=== PATIENT | male | born 1960 | race Caucasian/White ===

== ENCOUNTER 2023-07-09 17:00 | Emergency (ER) | payer MEDICARE, BC, SELFPAY ==
[2023-07-09 17:01] VITALS: BP 158/98
[2023-07-09 17:18] LABS: % Basophils 0.4 % (0-2); % Eosinophils 1.8 % (0-6); % Immature Granulocytes 0.4 % (0-0.5); % Lymphocytes 35.9 % (20.5-51.1); % Monocytes 10.7 % (1.7-9.3); % Neutrophils 50.8 % (42.2-75.2); Absolute Eosinophils 0.1 10^3/uL (0-0.7); Absolute Lymphocytes 2.4 10^3/uL (1.2-3.4); Absolute Monocytes 0.7 10^3/uL (0.1-0.6); Absolute Neutrophils 3.5 10^3/uL (1.4-6.5); Hematocrit 43.6 % (39.0-52.0); Hemoglobin 15.1 g/dL (13.0-18.0); Mean Corp Hgb Conc. 34.6 g/dL (33.0-37.0); Mean Corpuscular Hgb 30.7 pg (27.0-31.0); Mean Corpuscular Volume 88.6 fL (80.0-94.0); Mean Platelet Volume 9.9 fL (7.4-10.4); Nucleated Red Blood Cells % 0 % (-); Platelet Count 264 10^3/uL (130-400); Red Blood Cell Count 4.92 10^6/uL (4.70-6.10); Red Cell Dist. Width 12.4 % (11.5-14.5); White Blood Cell Count 6.8 10^3/uL (4.8-10.8)
[2023-07-09 17:46] VITALS: BP 135/88
[2023-07-09 17:47] VITALS: BMI 26.6
[2023-07-09 18:00] VITALS: BP 135/80
[2023-07-09 18:37] LABS: ALT (SGPT) 65 U/L (0-50); AST (SGOT) 51 U/L (17-59); Albumin 4.8 g/dl (3.5-5.0); Alkaline Phosphatase 59 U/L (38-126); Blood Urea Nitrogen 24 mg/dl (9-20); Calcium 9.8 mg/dl (8.4-10.2); Carbon Dioxide 24 mmol/L (22-30); Chloride 101 mmol/L (98-107); Estimated Creatinine Clearance 78 ml/min; Glucose 102 mg/dl (70-99); Potassium 4.7 mmol/L (3.5-5.1); Sodium 134 mmol/L (135-145); Total Bilirubin 0.8 mg/dl (0.2-1.3); Total Protein 7.6 g/dl (6.3-8.2); eGFR > 60.00
--- NOTE | 2023-07-09 18:37 | ED.GENMED ---
History of Present Illness
General
Chief Complaint: Heart Rate Problem
Source: patient
Exam Limitations: none
Time Seen by Provider: 07/09/23 17:57
Travel History
Have you had any contact with someone who has COVID-19?: No
Do you have any symptoms of coronavirus? Fever > 100 degrees, chills, cough, shortness of breath, sore throat, loss of taste or smell, muscle aches, or headache?: No
History of Present Illness
History of Present Illness:
This is a 63 year old male that comes in with c/o palpitations. States that for the past 24 hours he has felt these palpitations. Sates that yesterday he just felt a little lightheaded but he did not have the lightheadedness today. States that he
did drink 2 cups of coffee which he normally does. States that he also got his Shingles vaccine on Wednesday and this was his second dose and he felt funny after. Denies any fever, chills, chest pain, SOB, abd pain, nausea, vomiting, diarrhea,
headache, dizziness, urinary burning.
Past History
Past History
ED Past Medical History: Asthma, CAD, HTN, Hypercholesterolemia and Other (Sleep apnea, Reactive airway disease, Diverticulosis)
ED Past Surgical History: Orthopedic (Right arm tricep tendon repair, Right shoulder surgery) and Other (Hernia repair, Deviated septum)
Social History
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
Alcohol: Occasional
Drug: None
Personal:
Living: with family
Review of Systems
Review of Systems
All Other Systems: ROS reviewed and negative except as documented in HPI and ROS
Constitutional: Reports no symptoms; Denies fever or chills
EENT: Reports no symptoms
Respiratory: Reports no symptoms; Denies cough or trouble breathing
Cardiac: Reports palpitations; Denies chest pain
ABD/GI: Reports no symptoms; Denies abdominal pain, nausea, vomiting or diarrhea
: Reports no symptoms; Denies dysuria, frequency or urgency
Musculoskeletal: Reports no symptoms
Skin: Reports no symptoms
Neurological: Reports no symptoms; Denies dizzy or headache
Psychiatric: Reports no symptoms
Phy Exam
General Physical Exam
General Presentation: well appearing and no apparent distress
General age: appears stated age
General Skin: warm and dry
General Habitus: normal
General Mental: alert
General Hydration: appears well hydrated
ENT Exam
ENT Exam: TM's normal, pharynx normal and neck supple
Eye Exam
Eye Exam: EOMI
Cardiovascular Exam
Cardiovascular Exam: regular rate/rhythm, no edema, no murmur and normal peripheral pulses
Pulmonary Exam
Pulmonary Exam: lungs clear, no respiratory distress, no rales, chest non tender, no crackles, no rhonchi, no wheezing and no cough
Gastrointestinal Exam
Gastrointestinal Exam: normal bowel sounds, non tender, soft, no organomegaly, no pulsatile mass and non distended
Musculoskeletal Exam
Musculoskeletal Exam: full ROM and no edema
Skin Exam
Skin Exam: normal color, warm/dry, no rash and no petechia
Course
Orders/Labs/Results
Orders:
Orders
07/09/23 17:05
Electrocardiogram (*1) Urgent
Reason for Study: Palpitations
EKG- Treatment ONCE
07/09/23 17:13
CMP [Comprehensive Metabolic Panel] Urgent
Complete Blood Count/With Diff Urgent
Abnormal Lab Results
07/09/23
17:13
Absolute Monos (auto) 0.7 H 10^3/uL
(0.1-0.6)
Monocytes % 10.7 H %
(1.7-9.3)
Sodium 134 L mmol/L
(135-145)
BUN 24 H mg/dl
(9-20)
Glucose 102 H mg/dl
(70-99)
ALT 65 H U/L
(0-50)
07/09/23 17:13
07/09/23 17:13
Dehydration. Glucose nonfasting. ALT elevation.
Vital Signs
Initial and Last Documented VS:
Initial Vital Signs
Temp Pulse Resp BP Pulse Ox
98.1 F 85 18 158/98 97
07/09/23 17:01 07/09/23 17:01 07/09/23 17:01 07/09/23 17:01 07/09/23 17:01
Last Documented Vital Signs
Temp Pulse Resp BP Pulse Ox
98.1 F 76 13 135/80 95
07/09/23 17:01 07/09/23 18:45 07/09/23 18:45 07/09/23 18:00 07/09/23 18:45
MDM/Problems Addressed
Differential Diagnosis Includes:
Dropped beat with pause, Palpitations
MDM/Problems Addressed:
This is a 63 year old male that comes in with c/o palpitations. States that this started about 24 hours ago and he was lightheaded yesterday. States that today he is not light headed but continues with this feeling of palpitations.
Will check labs. ECG
Message sent to Dr. Martin with pictures of the pauses from the telemetry monitor. Feels that the patient can follow up in the office. Back into see patient. Patient stats that he is feeling good. Explained that after speaking with Dr. Martin
she feels that he can go home and follow up in the office. Encouraged patient to increase his water intake to 8-8oz glasses daily as his blood work shows dehydration. Patient to cut back on an Caffeine and call the [facility] office on Wednesday.
patient to return with increased feeling of pauses or Dizziness.
Chronic conditions affecting care:
NA
Acute Exacerbation and/or Progression of Chronic Illness:
NA
*Pulse Oximetry
Patient hypoxic: no
*EKG
Interpreted by ED Provider?: Yes
Heart Rate: 85
Rate: normal
Rhythm: sinus
Carver: normal axis
Interval: normal interval
QRS Pattern: normal QRS
Ischemia: no ischemia
*Glass Cutting Machine Feeder Interpretation
Rate: normal
Heart Rate: 79
Rhythm: sinus
*Critical Care Note
Total Time (30-74mins, 75-104mins- exclusive of procedures): Not Applicable
ED Attending Note
-
Portions of this chart may have been created with voice recognition software.� Occasional wrong word or��sound alike� substitutions may have occurred due to the inherent limitations of voice recognition software.
Discharge Plan
Departure
Patient Disposition: Home (Routine Discharge)
Date of Disposition: 07/09/23
Time of Disposition: 20:10
Patient with high blood pressure during this ER visit?: Yes
Condition: Good
Covid-19: Not Applicable
Discharge Problem:
Palpitations
Instructions: Palpitations (DC), BLOOD PRESSURE
Prescriptions:
No Action
lisinopril 5 mg Tablet
5 mg PO DAILY
ezetimibe [Zetia] 10 mg Tablet
10 mg PO QPM
coenzyme Q10 [CoQ-10] 100 mg Capsule
300 mg PO DAILY
rosuvastatin [Crestor] 40 mg Tablet
40 mg PO QPM
aspirin 81 mg Capsule
81 mg PO DAILY
budesonide-formoterol [Symbicort] 80-4.5 mcg/actuation Hfa Aerosol Inhaler
2 puff INHALATION BID
acetaminophen [acetaminophen] 325 mg tablet
650 mg PO Q6HPRN PRN (Reason: mild pain) Qty: 14 0RF
ibuprofen 600 mg tablet
600 mg PO Q6H PRN (Reason: pain) Qty: 14 0RF
tramadol 50 mg tablet
25 mg PO Q6HPRN PRN (Reason: severe pain/breakthrough pain) Qty: 8 0RF
oxycodone 5 mg tablet
5 mg PO Q6HPRN PRN (Reason: breakthrough/severe pain) Qty: 8 0RF
Referrals:
Karyna Rodríguez MD [Family Provider] -
Maxx Jasmine MD [Active] - Follow up in 2-3 days
Activity Restrictions/Additional Instructions:
As discussed, your blood work shows that you are dehydrated. Please increase your water intake to 8-8oz glasses daily. After speaking with the [facility], they feel that you can go home and follow up in their office. Please call their office on
Wednesday to set up an appointment for further evaluation. Please try and decrease your caffeine intake until seen. IF YOU HAVE FEELING OF INCREASED PAUSES, DIZZINESS, OR YOU HAVE ANY OTHER CONCERNS PLEASE RETURN TO THE EMERGENCY ROOM.
Interventions
Interventions:
*Risk Screen - Suicide Last Done: 07/09/23 17:47
*General Assessment Last Done: 07/09/23 17:01
*Neglect/Abuse Screening Last Done: 07/09/23 17:47
ED- Fall Risk Assessment Last Done: 07/09/23 17:47
*ED COVID-19 Vaccine History Last Done: 07/09/23 17:01
ED- Cardiac Assessment Last Done: 07/09/23 17:47
ED- Pulmonary Assessment Last Done: 07/09/23 17:47
[2023-07-09 19:00] VITALS: BP 143/96
[2023-07-09 20:00] VITALS: BP 132/94
== END 2023-07-09 20:22 | disposition home or self-care (01) ==
LOC: EMR 17:00
PROVIDERS: Emergency Medicine; EMERGENCY PHYSICIAN Emergency Medicine; FAMILY PHYSICIAN Internal Medicine
DX: R00.2 Palpitations (principal); J45.909 Unspecified asthma, uncomplicated; I25.10 Atherosclerotic heart disease of native coronary artery without angina pectoris; I10 Essential (primary) hypertension; E78.00 Pure hypercholesterolemia, unspecified; G47.30 Sleep apnea, unspecified
CPT/HCPCS: 99283; 80053; 85025; 93005

== ENCOUNTER → 2025-05-05 09:30 | Outpatient (REF) | payer MEDICARE, BC, SELFPAY | LOC: PAVMRI 09:30 | PROVIDERS: ATTENDING PHYSICIAN Specialist; FAMILY PHYSICIAN Internal Medicine | DX: M25.511 Pain in right shoulder (principal) | CPT/HCPCS: 73221 ==